=== PATIENT | female | born 1950 | race Caucasian/White ===

== ENCOUNTER 2016-10-13 16:12 | Observation (INO) ==
[2016-10-13] MEDS ORDERED: Aspirin 81 MG TAB.CHEW PO ONE (16:40)
--- NOTE | 2016-10-13 16:45 | Emergency Department Note ---
Disposition Clinical Impression: Unstable angina pectoris Disposition: Admitted As Inpatient Condition: Fair Chest Pain HPI - General Chief Complaint: ED Chest Pain Stated Complaint: chest pain/gabriele Time Seen by Provider: 10/13/16 16:26 Source: patient, family Mode of arrival: private vehicle Limitations: no limitations Vital Signs Reviewed: Yes Nursing Notes Reviewed: Yes - History of Present Illness HPI Narrative: Patient reports chest pain that over the past couple weeks has been increasing in severity and frequency and seems to be precipitated by less and less activity as time goes on. Today she had a severe episode that is precipitated when she was changing a tire rack in the bathroom. She had such chest discomfort and shortness of breath that she ended up on the floor and was having a hard time speaking because she felt so bad. Eventually it passed and she is actually pain-free here in the department. Pt complaint: chest pain Onset (ago): week(s) Duration: intermittent, gradually worsening Onset: during exertion Pain Location: substernal Severity: severe, now resolved Severity scale (1-10): 0 Quality: tightness Pain Radiation: none Improves with: rest Worsens with: exertion Associated symptoms: Reports: dyspnea Treatments prior to arrival chest pain: other (The patient was seen a couple weeks ago for chest discomfort and had a negative workup and arrangements were made for outpatient workup including a cardiology follow-up and an outpatient echo.) - Related Data Home Medications Medication Instructions Recorded Confirmed Aspirin Enteric Coated [Aspirin EC] 81 mg PO QAM 10/13/16 10/13/16 Cholecalciferol (Vitamin D3) 5,000 unit PO QAM 10/13/16 10/13/16 [Vitamin D3] Vit C/E/Zn/Coppr/Lutein/Zeaxan 1 cap PO BID 10/13/16 10/13/16 [Preservision Areds 2 Softgel] Previous Rx's Medication Instructions Recorded Docusate [Colace] 100 mg PO BID #60 capsule 10/18/16 Ferrous Sulfate 325 mg PO BIDWM #60 tablet 10/18/16 Allergies Allergy/AdvReac Type Severity Reaction Status Date / Time No Known Allergies Allergy Verified 10/13/16 16:20 All systems ED: reviewed and negative except as stated. Constitutional: Denies: fever, chills ENT ED: Denies: ear pain, throat pain, congestion Cardiovascular: Reports: chest pain, dyspnea on exertion. Denies: palpitations Respiratory: Reports: dyspnea. Denies: cough Gastrointestinal: Denies: abdominal pain, nausea, vomiting Musculoskeletal: Denies: back pain Integumentary: Denies: rash Neurological: Denies: headache Chest Pain PMH - Past Medical History Medical history: Reports: no medical history Surgical history: Reports: non-contributory Psychiatric history: Reports: no psych history FUR COAT SEWER history: Reports: no FUR COAT SEWER history, bilateral tubal ligation - Social History Smoking Status: Never smoker Alcohol use: Reports: occasionally Drug use: Reports: none Physical Exam - General Limitations: no limitations General appearance: alert, in no apparent distress - Head Head exam: atraumatic, normocephalic - Eye Eye exam: Present: normal appearance, PERRL, EOMI - ENT ENT exam: normal exam, mucous membranes moist, normal external ear exam - Neck Neck exam: Present: normal inspection, full ROM, trachea midline - Chest Chest inspection: Present: normal inspection, symmetric chest wall rise. Absent : tenderness - Respiratory Respiratory exam: Present: normal lung sounds bilaterally. Absent: respiratory distress, wheezes - Cardiovascular Cardiovascular exam: Present: regular rate, normal rhythm, normal heart sounds - Abdominal Exam Abdominal exam: Present: soft, Non-Tender - Extremities Exam Extremities exam: Present: normal inspection, full ROM. Absent: pedal edema - Neurological Exam Neurological exam: Present: alert, oriented X3 - Psychiatric Psychiatric exam: Present: normal affect, normal mood - Skin Skin exam: Present: warm, dry. Absent: rash Course Course Narrative: Patient presents with what sounds like angina. It also sounds unstable and that there is a significant crescendo pattern. She is completely asymptomatic at rest lying in the bed. I initiated a cardiac workup. Her EKG is unremarkable. We will get the labs going. She needs to be admitted to the hospital. I already spoke with the hospitalist who concurs. We are waiting for labs to come back and if there are no significant abnormalities patient will be admitted to the hospitalist service. We discussed the utilization of heparin at this time and will hold off since the patient is completely asymptomatic. - Consultations Consultation #1: Dr. Kaur, hospitalist - I discussed the case with the hospitalist. He is accepted the patient for admission pending lab results. When labs come back normal we will admit the patient to the floor on the hospitalist service. If there are abnormalities then we will contact the appropriate services. Time: 16:51 Vital Signs Temperature 98.1 F 10/13/16 16:20 Pulse Rate 78 10/13/16 16:20 Respiratory Rate 15 10/13/16 16:20 Blood Pressure 126/81 10/13/16 16:20 O2 Sat by Pulse Oximetry 99 10/13/16 16:20 Temperature 98.2 F 10/18/16 10:59 Pulse Rate 74 10/18/16 10:59 Respiratory Rate 15 10/18/16 10:59 Blood Pressure 120/74 10/18/16 10:59 O2 Sat by Pulse Oximetry 95 10/18/16 10:59 Oxygen Delivery Oxygen Delivery Room Air Chest Pain - Lab Data Lab results reviewed: Yes I reviewed the patient's lab results. Result diagrams: 10/18/16 06:45 10/18/16 06:45 Lab Results 10/13/16 10/13/16 10/13/16 Range/Units 17:10 17:10 17:10 WBC 7.5 (4.3-11.1) K/mcL RBC 3.95 (3.82-4.97) M/mcL Hgb 10.8 L (11.5-15.4) g/dL Hct 33.4 L (35.3-44.9) % MCV 84.6 (83.0-100.0) fL MCH 27.3 L (28.0-33.3) pg MCHC 32.3 (31.6-35.5) g/dL RDW 13.7 (11.5-14.5) % Plt Count 268 (140-400) K/mcL MPV 10.0 (9.4-12.4) fL Immature Gran % 0.3 (0-4) % Seg Neutrophils % 56.6 % Lymphocytes % 32.0 % Monocytes % 9.5 % Eosinophils % 1.1 % Basophils % 0.5 % Neutrophils # 4.3 (1.6-8.9) K/mcL Lymphocytes # 2.4 (0.6-4.6) K/mcL Monocytes # 0.7 (0.0-1.3) K/mcL Eosinophils # 0.1 (0.0-0.6) K/mcL Basophils # 0.0 (0.0-0.2) K/mcL PT 11.7 (9.4-12.1) Seconds INR 1.1 APTT 28.7 (26.0-36.0) Seconds Sodium 137 (136-145) mEq/L Potassium 3.7 (3.5-4.5) mEq/L Chloride 103 (98-109) mEq/L Carbon Dioxide 25 (19-29) mEq/L BUN 15 (7-20) mg/dL Creatinine 0.89 (0.57-1.11) mg/dL Est GFR ( Amer) > 60 (> 60) Est GFR (Non-Af Amer) > 60 (> 60) BUN/Creatinine Ratio 17 (6-26) Glucose 112 H (70-99) mg/dL Calculated Osmolality 286 (280-300) Calcium 9.1 (8.6-10.8) mg/dL Troponin I (0-0.03) ng/mL 10/13/16 Range/Units 17:10 WBC (4.3-11.1) K/mcL RBC (3.82-4.97) M/mcL Hgb (11.5-15.4) g/dL Hct (35.3-44.9) % MCV (83.0-100.0) fL MCH (28.0-33.3) pg MCHC (31.6-35.5) g/dL RDW (11.5-14.5) % Plt Count (140-400) K/mcL MPV (9.4-12.4) fL Immature Gran % (0-4) % Seg Neutrophils % % Lymphocytes % % Monocytes % % Eosinophils % % Basophils % % Neutrophils # (1.6-8.9) K/mcL Lymphocytes # (0.6-4.6) K/mcL Monocytes # (0.0-1.3) K/mcL Eosinophils # (0.0-0.6) K/mcL Basophils # (0.0-0.2) K/mcL PT (9.4-12.1) Seconds INR APTT (26.0-36.0) Seconds Sodium (136-145) mEq/L Potassium (3.5-4.5) mEq/L Chloride (98-109) mEq/L Carbon Dioxide (19-29) mEq/L BUN (7-20) mg/dL Creatinine (0.57-1.11) mg/dL Est GFR ( Amer) (> 60) Est GFR (Non-Af Amer) (> 60) BUN/Creatinine Ratio (6-26) Glucose (70-99) mg/dL Calculated Osmolality (280-300) Calcium (8.6-10.8) mg/dL Troponin I 0.00 (0-0.03) ng/mL - Radiology Data Radiology results reviewed: Yes I reviewed the patient's radiology results. - EKG Data EKG attestation: Yes I reviewed and interpreted this EKG. EKG shows normal: sinus rhythm, axis, intervals, QRS complexes, ST-T waves Rate: normal Interpretation: no acute changes, normal EKG
[2016-10-13 17:23] LABS: Basophils % 0.5 %; Eosinophils # 0.1 K/mcL (0.0-0.6); Eosinophils % 1.1 %; Hematocrit 33.4 % (35.3-44.9); Hemoglobin 10.8 g/dL (11.5-15.4); Immature Granulocytes % 0.3 % (0-4); Lymphocytes # 2.4 K/mcL (0.6-4.6); Mean Corpuscular HGB Conc 32.3 g/dL (31.6-35.5); Mean Corpuscular Hemoglobin 27.3 pg (28.0-33.3); Mean Corpuscular Volume 84.6 fL (83.0-100.0); Monocytes # 0.7 K/mcL (0.0-1.3); Monocytes % 9.5 %; Neutrophils # 4.3 K/mcL (1.6-8.9); Platelet Count 268 K/mcL (140-400); Red Blood Count 3.95 M/mcL (3.82-4.97); Red Cell Distribution Width 13.7 % (11.5-14.5); Segmented Neutrophils % 56.6 %
[2016-10-13 17:27] LABS: INR 1.1; Prothrombin Time 11.7 Seconds (9.4-12.1)
[2016-10-13 17:30] LABS: Activated Partial Thrombo Time 28.7 Seconds (26.0-36.0)
[2016-10-13 17:38] LABS: BUN/Creatinine Ratio 17 (6-26); Blood Urea Nitrogen 15 mg/dL (7-20); Calcium 9.1 mg/dL (8.6-10.8); Carbon Dioxide 25 mEq/L (19-29); Chloride 103 mEq/L (98-109); Glucose 112 mg/dL (70-99); Osmolality,Calculated 286 (280-300); Potassium 3.7 mEq/L (3.5-4.5); Sodium 137 mEq/L (136-145); eGFR For African Americans > 60 (> 60); eGFR For Non-African Americans > 60 (> 60)
[2016-10-13] MEDS ORDERED: Ondansetron 4 MG/2 ML VIAL IVP PRN (17:42)
[2016-10-13] MEDS ORDERED: MOM Conc 10 ML UD.LIQ PO PRN (17:42)
[2016-10-13] MEDS ORDERED: Naloxone 0.4 MG/ML INJ IVP PRN (17:42)
[2016-10-13] MEDS ORDERED: Mag Hydrox/Al Hydrox/Simeth 30 ML UDC PO PRN (17:42)
[2016-10-13] MEDS ORDERED: 0.9 % Sodium Chloride 1,000 ML IVC SCH (17:45)
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
[2016-10-13] MEDS: Acetaminophen 325 MG TABLET PO PRN (23:20)
[2016-10-14 00:37] LABS: Hematocrit 30.9 % (35.3-44.9); Hemoglobin 10.2 g/dL (11.5-15.4)
[2016-10-14 00:54] LABS: BUN/Creatinine Ratio 14 (6-26); Blood Urea Nitrogen 11 mg/dL (7-20); Carbon Dioxide 22 mEq/L (19-29); Chloride 104 mEq/L (98-109); Glucose 113 mg/dL (70-99); Osmolality,Calculated 278 (280-300); Potassium 3.6 mEq/L (3.5-4.5); Sodium 134 mEq/L (136-145); eGFR For African Americans > 60 (> 60); eGFR For Non-African Americans > 60 (> 60)
[2016-10-14] MEDS ORDERED: Regadenoson 0.4 MG/5 ML SYRINGE IVP ONE (06:27)
[2016-10-14 06:46] LABS: Bilirubin,Urine Negative (Negative); Blood,Urine Trace (Negative); Clarity,Urine Clear (Clear); Color,Urine Yellow (Yellow); Glucose,Urine (UA) Normal (Normal); Ketones,Urine Trace mg/dL (Negative); Leukocyte Esterase,Urine Trace (Negative); Nitrite,Urine Negative (Negative); Protein,Urine Negative (Neg-Trace); Specific Gravity,Urine 1.009 (1.010-1.025); Urobilinogen,Urine Normal (Normal)
[2016-10-14 06:48] LABS: Bacteria,Urine None Seen per hpf (None-Few); Hyaline Casts,Urine None Seen per lpf (None-Few); RBC,Urine 0-3 per hpf (0-3); Squamous Epithelial Cell,Urine Few per lpf (None-Few)
[2016-10-14] MEDS: Aspirin Enteric Coated 81 MG Tablet PO SCH (10:39)
--- NOTE | 2016-10-14 10:55 | ECHO - Doppler Report ---
Echocardiogram Name: Louisa Ramos Date of Study: 10/14/2016 Date: 1950 Ht: 65.0 in Medical Record#: [id number] Age: 66 Wt: 135.0 lb Gender: Female BSA: 1.67 Order #: [id number] Location: [facility] Room #: [id number] Reading Physician: Joe Del Rosario MD, [facility] An/Sqq 89(V)15 Sonar System Journeyman: Sven Cool RDCS Ordering Physician: Hannah Gray CNP Primary Physician: Indications: Shortness of breath, Chest pain Impressions: Normal left atrial size. No pulmonary hypertension. LVEF 60-65%. Normal left ventricular diastolic function. Mild aortic regurgitation. Left Ventricular Wall Motion: Rest Echo Findings All wall segments showed normal motion. Findings: Study Quality * Technically adequate exam. Right Ventricle * Normal right ventricular structure and function. Left Atrium * Normal left atrial size. Right Atrium * Normal right atrial size. Interatrial Septum * No evidence of PFO by color Doppler. Aorta * Normally sized aortic root. Pericardium * The pericardium appears normal. ECG Findings * Normal sinus rhythm. Mitral Valve * Normal mitral valve structure. * No mitral stenosis. * Trace mitral regurgitation. Tricuspid Valve * No tricuspid stenosis. * Trace tricuspid regurgitation. * Estimated RVSP is 25 mmHg. * Estimated RA pressure is 3-5 mmHg. * No pulmonary hypertension. Pulmonic Valve * No pulmonic stenosis. * Mild pulmonic regurgitation. * Pulmonic valve not well visualized. Left Ventricle * LVEF 60-65%. * Normal left ventricular diastolic function. * No segmental dysfunction. Aortic Valve * Normal aortic valve structure. * Trileaflet aortic valve. * Mild aortic regurgitation. IVC * Normal IVC dimensions and inspiratory collapse. History Measurements: BP: 101/ 62 2D Normal Values RVIDd: 2.70 cm <2.7 cm IVSd: .90 cm 0.6 - 1.0 cm LVIDd: 3.80 cm 3.7 - 5.6 cm LVPWd: .90 cm 0.6 - 1.1 cm LVIDs: 2.70 cm 1.5 - 3.6 cm AO: 2.90 cm < 4.0 cm LA: 2.90 cm 2.0 - 4.0cm %FS: 28.90 cm >25 % LA volume: 42 Mitral Valve Peak E:.77 m/sec Peak A:.55 m/sec E/A Ratio:1.4 Peak E' Lat Yossi:9.16 cm/s Peak E' Med Yossi:4 cm/s E/E' Lat Ratio:8.4 E/E' Med Ratio:19.1 Tricuspid Valve TV Regurg Peak Grad: 25.00mmHg TV Regurg Peak Yossi: 2.48m/sec Updated by Joe Del Rosario MD, FACC on 10/14/2016 10:48:38 AM electronically signed on 10/14/2016 10:48:50 AM with status of Final Wall Motion Hernandez: 1=Normal, 2=Hypokinesis, 3=Akinesis, 4=Dyskinesis, 5=Aneurysmal, 6=Hyperkinetic, X=Not Visualized (Blank)=Missing
--- NOTE | 2016-10-14 11:22 | Internal Med Progress Note ---
Date of Encounter: 10/14/16 Time of Encounter: 11:00 - Assessment and plan (1) Chest pain Current Visit: Yes Status: Acute Assessment and plan: Pt reports that chest pressure is some better today, however she is not up as she normally would be. Pressure is better with rest. Stress and echo done this a.m. Echo shows normal L atrial size, LVEF 60-65%, normal L ventricualr diastolic function, and mild aortic regurgitation. Stress negative for ischemia or infarct, pt denied chest pain during stress. Chest xray negative for any acute cardiopulmonary process. Lungs are clear. Troponins were negative. Pt elicits less of a response when epigastric area palpated this a.m. Will also continue Prilosec 20mg and add hepatic panel. Suspect gastritis. Continue telemetry Continue cardiac diet-no caffeine Qualifiers: Chest pain type: unspecified Qualified Code(s): R07.9 - Chest pain, unspecified (2) Shortness of breath Current Visit: Yes Status: Acute Assessment and plan: Stable. No change. Pt reports even slight increase in SOB with treadmill stress test. (3) Low hemoglobin Current Visit: Yes Status: Acute Assessment and plan: Hgb 10.8 yesterday, 10.2 today, could be from hemodilution with IVF overnight. Bedside guaiac nedgative and repeat Hgb remains 10.8. Will continue to monitor. (4) UTI (urinary tract infection) Current Visit: Yes Status: Acute Assessment and plan: Fever 103.0 overnight. Chest xray negative, flu swab negative. Fever resolved with Acetaminophen. Urine collected last night with trace of ketones, blood, and leukocyte esterase, few epithelial cells and 5-15 WBC. Culture is pending. Will start Rocephin 1 gram IV. Qualifiers: Urinary tract infection type: acute cystitis Hematuria presence: with hematuria Qualified Code(s): N30.01 - Acute cystitis with hematuria (5) Fever Current Visit: Yes Status: Resolved Assessment and plan: Resolved with Acetaminophen. Repeat WBC 6.8, no leukocytosis. Qualifiers: Fever type: due to other condition Qualified Code(s): R50.81 - Fever presenting with conditions classified elsewhere (6) Fatigue Current Visit: Yes Status: Acute Assessment and plan: Pt resting, states that she feels some better. Will continue to monitor. Qualifiers: Fatigue type: unspecified Qualified Code(s): R53.83 - Other fatigue - Time Spent With Patient less than 15 minutes - Subjective Interval history: Pt states that the chest pressure is some better and she has not had any intense pain since 0500. She does admit that the pressure is better with rest, but she still feels SOB. She tolerated the stress test well and requested to not have the treadmill on an incline and completed the entire 4 min with only slight increase in pressure and SOB. Pt denies urinary symptoms, dysuria, flank pain, urgency, frequency. - Constitutional Vitals: Temp Pulse Resp BP Pulse Ox 97.7 F 54 15 101/62 93 L 10/14/16 07:16 10/14/16 07:16 10/14/16 07:16 10/14/16 07:16 10/14/16 10:30 General appearance: Present: cooperative, A&O X 3, pleasant, answers questions appropriately - ENT ENT exam: Present: mucous membranes moist, normal exam - Neck Neck exam general surgery: Present: normal inspection. Absent: lymphadenopathy , tenderness - Respiratory Respiratory exam: Present: CTAB. Absent: accessory muscle use, chest wall tenderness, decreased breath sounds, rales, respiratory distress, rhonchi, stridor, wheezes, tachypnea - Cardiovascular Cardiovascular exam: Present: RRR, +S1, +S2. Absent: diastolic murmur, systolic murmur - GI/Abdominal GI/Abdominal exam: Present: hepatomegaly, normal bowel sounds, tenderness Additional comments: epigastric tenderness has improved since last pm, less of a reaction today than last night in ED. - Extremities Exam Extremities exam: Present: normal capillary refill, normal inspection, warm. Absent: calf tenderness, cyanotic, joint swelling, pedal edema, tenderness - Neurological Exam Neurological exam: Present: alert, oriented X3. Absent: no focal deficits Internal Medicine: Result - Labs CBC & Chem 7: 10/14/16 12:30 10/14/16 00:06 Labs: Short CBC 10/14/16 Range/Units 00:06 Hgb 10.2 L (11.5-15.4) g/dL Hct 30.9 L (35.3-44.9) % BMP 10/14/16 00:06 Sodium 134 L Potassium 3.6 Chloride 104 Carbon Dioxide 22 BUN 11 Creatinine 0.80 Glucose 113 H Calcium 8.0 L Cardiac Enzymes 10/14/16 10/14/16 Range/Units 00:06 06:28 Troponin I 0.01 0.01 (0-0.03) ng/mL Urine 10/14/16 Range/Units 06:00 Urine Color Yellow (Yellow) Urine Clarity Clear (Clear) Urine pH 6.0 (5.0-8.0) pH Units Ur Specific [place] 1.009 L (1.010-1.025) Urine Protein Negative (Neg-Trace) mg/dL Urine Glucose (UA) Normal (Normal) mg/dL - ABG Interpretation ABG results: PT/INR, D-dimer PT 11.7 Seconds (9.4-12.1) 10/13/16 17:10 Consult Discharge Plan - Plan Referrals: Steven Bravo DO [Primary Care Provider] -
--- NOTE | 2016-10-14 11:42 | Nuclear Medicine Stress Report ---
Low Level Regadenoson Name: Louisa Ramos Date of Study: 10/14/2016 Date: 1950 Ht: 64.0 in Medical Record#: [id number] Age: 66 Wt: 136.0 lb Gender: Female Order #: [id number] Location: [facility] Room: [facility] Supervising Provider: Orlando Schwarz CNP Reading Physician: Joe Del Rosario MD, [facility] Ordering Physician: Lety Antonio CNP Primary Care Physician: Steven Bravo DO Stress Technologist: Beau Braga, MILIEU COORDINATOR, [facility] Backfiller: Rufino Edwards Indications: Chest Pain, Chest Pain Impression: Perfusion imaging was negative for ischemia or infarct. Pharmacologic ECG was non diagnostic for ischemia. Patient had no chest pain with stress. Normal hemodynamic response. Gated EF = >70%. The LV is not dilated. There is no evidence of TID. Stress Test Summary: Stress Test Type: Low level pharmacologic Regadenoson 0.4mg/5ml given IV Baseline Information: Initial Heart Rate: 77 Blood Pressure: 102/72 Stress Information: Stress Time: 4 min 00 sec Test Terminated Due to (primary): As per protocol Maximum Blood Pressure: 104/70 Maximum Heart Rate: 105 Percent Maximum Heart Rate Achieved: 69 Double Product: [id number] METS Reached: 2.1 Symptoms: Shortness of breath, Shortness of breath Nuclear Summary: SPECT myocardial perfusion imaging using Tc99m Sestamibi given intravenously was performed at rest and following cardiac stress testing. The resting images were obtained following initial dose of 10.7 mCi. Following stress an additional dose of 34.3 mCi was given at peak exercise or 30 seconds post regadenoson infusion. Medication Given: Time Medication Dose Units Route Findings: Stress Note * Resting ECG demonstrated normal sinus rhythm. * No baseline arrhythmias were noted. * Pharmacologic stress ECG is non diagnostic for ischemia due to failure to reach target heartrate. * Patient had no chest pain during stress. * Rare PVCs noted prior to exam beginning. * Rare PVCs noted during stress. Study Quality * Study quality is good. Gated EF > 70% * Gated EF > 70%. Left Ventricle * The left ventricle is not dilated. NORMALS * Normal wall motion. * Normal segmental perfusion in stress. * Normal Segmental Perfusion in rest. TID * No evidence of transient ischemic dilatation. Updated by Joe Del Rosario MD, FACC on 10/14/2016 11:36:49 AM electronically signed on 10/14/2016 11:37:41 AM with status of Final
[2016-10-14 12:48] LABS: Basophils # 0.1 K/mcL (0.0-0.2); Basophils % 0.7 %; Eosinophils % 0.4 %; Hematocrit 35.4 % (35.3-44.9); Hemoglobin 10.8 g/dL (11.5-15.4); Immature Granulocytes % 0.4 % (0-4); Immature Platelets 3.2 % (1.1-6.1); Lymphocytes % 29.5 %; Mean Corpuscular HGB Conc 30.5 g/dL (31.6-35.5); Mean Corpuscular Hemoglobin 26.8 pg (28.0-33.3); Mean Corpuscular Volume 87.8 fL (83.0-100.0); Mean Platelet Volume 10.1 fL (9.4-12.4); Monocytes # 0.6 K/mcL (0.0-1.3); Monocytes % 9.1 %; Neutrophils # 4.1 K/mcL (1.6-8.9); Platelet Count 223 K/mcL (140-400); Red Blood Count 4.03 M/mcL (3.82-4.97); Red Cell Distribution Width 13.8 % (11.5-14.5); Segmented Neutrophils % 59.9 %
[2016-10-14 12:49] LABS: Albumin 2.9 g/dL (3.5-5.0); Albumin/Globulin Ratio 0.8 (1.1-2.2); Bilirubin,Direct 0.3 mg/dL (0.0-0.5); Bilirubin,Indirect 0.4 mg/dL (0.0-1.2); Bilirubin,Total 0.7 mg/dL (0.2-1.2); Globulin 3.7 g/dL (2.4-3.5); Total Protein 6.6 g/dL (6.0-8.3)
[2016-10-14 13:27] LABS: Platelet Estimate Normal (Normal); Reactive Lymphocytes Present (Not Present)
[2016-10-14] MEDS: Acetaminophen 325 MG TABLET PO PRN (16:34)
[2016-10-15 04:08] LABS: Basophils # 0.1 K/mcL (0.0-0.2); Basophils % 0.5 %; Hemoglobin 10.9 g/dL (11.5-15.4); Immature Granulocytes % 0.3 % (0-4); Lymphocytes # 2.1 K/mcL (0.6-4.6); Lymphocytes % 21.7 %; Mean Corpuscular HGB Conc 32.1 g/dL (31.6-35.5); Mean Corpuscular Hemoglobin 27.1 pg (28.0-33.3); Mean Corpuscular Volume 84.6 fL (83.0-100.0); Mean Platelet Volume 10.7 fL (9.4-12.4); Monocytes # 0.7 K/mcL (0.0-1.3); Monocytes % 6.8 %; Neutrophils # 6.8 K/mcL (1.6-8.9); Platelet Count 241 K/mcL (140-400); Red Blood Count 4.02 M/mcL (3.82-4.97); Red Cell Distribution Width 13.8 % (11.5-14.5); Segmented Neutrophils % 70.7 %
[2016-10-15 04:23] LABS: BUN/Creatinine Ratio 12 (6-26); Blood Urea Nitrogen 11 mg/dL (7-20); Calcium 8.3 mg/dL (8.6-10.8); Carbon Dioxide 21 mEq/L (19-29); Chloride 103 mEq/L (98-109); Glucose 118 mg/dL (70-99); Osmolality,Calculated 280 (280-300); Potassium 3.6 mEq/L (3.5-4.5); Sodium 135 mEq/L (136-145); eGFR For African Americans > 60 (> 60); eGFR For Non-African Americans > 60 (> 60)
[2016-10-15] MEDS: Acetaminophen 325 MG TABLET PO PRN ×2 (04:25→18:13)
[2016-10-15] MEDS: *HR* Morphine 2 MG/ML SYRINGE IVP PRN ×2 (04:35→14:25)
[2016-10-15 04:55] LABS: Reactive Lymphocytes Present (Not Present)
[2016-10-15 04:56] LABS: Platelet Estimate Normal (Normal)
[2016-10-15] MEDS: Aspirin Enteric Coated 81 MG Tablet PO SCH (08:25)
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
[2016-10-16] MEDS: *HR* Morphine 2 MG/ML SYRINGE IVP PRN ×2 (01:15→16:10)
[2016-10-16 04:43] LABS: Basophils % 0.3 %; Eosinophils % 0.1 %; Hematocrit 32.1 % (35.3-44.9); Hemoglobin 10.2 g/dL (11.5-15.4); Immature Granulocytes % 0.3 % (0-4); Immature Reticulocyte % 21.6 % (11.0-38.0); Lymphocytes % 14.8 %; Mean Corpuscular HGB Conc 31.8 g/dL (31.6-35.5); Mean Corpuscular Hemoglobin 26.6 pg (28.0-33.3); Mean Corpuscular Volume 83.6 fL (83.0-100.0); Mean Platelet Volume 10.3 fL (9.4-12.4); Monocytes # 0.8 K/mcL (0.0-1.3); Monocytes % 7.6 %; Platelet Count 228 K/mcL (140-400); Red Blood Count 3.84 M/mcL (3.82-4.97); Red Cell Distribution Width 13.9 % (11.5-14.5); Retculocyte # 0.06 M/mcL (0.05-0.10); Reticulocyte % 1.5 % (1.6-2.8); Segmented Neutrophils % 76.9 %
[2016-10-16 04:45] LABS: Lymphocytes # 1.5 K/mcL (0.6-4.6)
[2016-10-16 05:09] LABS: BUN/Creatinine Ratio 16 (6-26); Blood Urea Nitrogen 13 mg/dL (7-20); Calcium 8.1 mg/dL (8.6-10.8); Carbon Dioxide 22 mEq/L (19-29); Chloride 101 mEq/L (98-109); Glucose 130 mg/dL (70-99); Osmolality,Calculated 278 (280-300); Potassium 3.6 mEq/L (3.5-4.5); Sodium 133 mEq/L (136-145); eGFR For African Americans > 60 (> 60); eGFR For Non-African Americans > 60 (> 60)
[2016-10-16 05:16] LABS: Reactive Lymphocytes Present (Not Present)
[2016-10-16 05:17] LABS: Platelet Estimate Normal (Normal)
[2016-10-16 05:34] LABS: Folate 9.7 ng/mL (7.0-31.4)
[2016-10-16 06:18] LABS: % Iron Saturation 4 % (15-50); Iron 14 mcg/dL (50-170); Transferrin 227 mg/dL (180-382)
[2016-10-16 06:37] LABS: Ferritin 57 ng/ml (5-204)
--- NOTE | 2016-10-16 07:03 | Electrocardiograph Report ---
[address] [place] [address] Test Date: 2016-10-13 Pat Name: Louisa Ramos Department: 104 Room: 3B22 Gender: F Word Processing Operator: : 1950 Requested By: Steve Goodwin Order Number: [id number] Reading MD: Joe Del Rosario MD Measurements Intervals [place] Rate: 78 P: 6 CT: 155 QRS: 14 QRSD: 82 T: 41 QT: 371 QTc: 404 Interpretive Statements SINUS RHYTHM Electronically Signed On 10-16-2016 7:01:59 EST by Joe Del Rosario MD
[2016-10-16] MEDS: Aspirin Enteric Coated 81 MG Tablet PO SCH (09:39)
--- NOTE | 2016-10-16 14:35 | Discharge Summary ---
Date of Encounter: 10/16/16 Time of Encounter: 09:00 - Discharge Diagnosis (1) Chest pain Priority: Primary Status: Acute Qualifiers: Chest pain type: unspecified Qualified Code(s): R07.9 - Chest pain, unspecified (2) Exertional dyspnea Priority: Secondary Status: Acute (3) Anemia Priority: Secondary Status: Acute Qualifiers: Anemia type: iron deficiency (4) Fever Priority: Secondary Status: Acute (5) DVT prophylaxis Priority: Secondary Status: Acute - Discharge Medications Prescriptions: Docusate [Colace] 100 mg PO BID #60 capsule Ferrous Sulfate 325 mg PO BIDWM #60 tablet PredniSONE [Prednisone] 10 mg PO DAILY #15 tab.ds.pk Home Medications: Aspirin Enteric Coated [Aspirin EC] 81 mg PO QAM 10/13/16 [History] Cholecalciferol (Vitamin D3) [Vitamin D3] 5,000 unit PO QAM 10/13/16 [History] Vit C/E/Zn/Coppr/Lutein/Zeaxan [Preservision Areds 2 Softgel] 1 cap PO BID 10/13 [History] Docusate [Colace] 100 mg PO BID #60 capsule 10/16/16 [Rx] Ferrous Sulfate 325 mg PO BIDWM #60 tablet 10/16/16 [Rx] PredniSONE [Prednisone] 10 mg PO DAILY #15 tab.ds.pk 10/16/16 [Rx] Allergies/Adverse Reactions: Allergies No Known Allergies Allergy (Verified 10/13/16 16:20) Procedures/tests Complete & Pending: Procedures Performed prior 72 hours Category Date Time Status CT chest w/o contrast [CT chest wo con] [CT] Routine Cat Scan 10/15/16 11:25 Completed NM ellie perf SPECT multi [NM] Routine Exams 10/13/16 18:43 Taken EV echocardiogram Routine Y 10/14/16 08:09 Completed SP pharm nuclear stress Routine Y 10/14/16 07:00 Completed Date of admission: 10/13/16 18:04 Primary care physician: Lydia Levi Discharging clinician: Torin Mendoza Anticipated date of discharge: 10/16/16 - Patient Status Disposition: Home, Self-Care Condition: Fair Functional capacity at discharge: independent ambulation Overall status at discharge: patient is progressing back to baseline - Discharge Instructions Follow Up With: Shelly,Steven D, DO [Primary Care Provider] - - Diet and Activity Activity: increase activity as tolerated Diet: advance to your usual diet Hospital course: Ms. Ramos is a 66 year old female who presented to hospital on 10/13/16 with substernal chest pressure. She stated that she was hanging towel racks in her home and had an acute onset of chest pressure. She dropped to her knees because she was unable to catch her breath. She stated that she has had prior episodes of the same in the past month. She admitted to one-month history of extreme fatigue and increased dyspnea. She stated that she goes to work for approximately four hours and returns home very fatigued, which is new for her. While she only sleeps 4-5 hours each night, she lies in bed for 12-13 hours because she is too fatigued to move. EKG and telemetry revealed no arrhythmias. CXR demonstrated no consoliation, pleural effusion, or pneumothorax. CT chest revealed minimal linear atelectasis or fibrosis in the lung bases. Lungs were clear of airspace disease or focal mass. No pleural effusion was noted. Cacified granuloma in left lung apex was seen. Stress test was negative for ischemia. ECHO was normal. Patient did have Tmax of 103 during hospital stay with elevations of inflammatory markers. ESR 92, CRP 92, and WBC increased from 7.5 upon admission to 10.5. EBV was negative, RF was negative. WENDY, CCP, and parvovirus B19 are pending. Respiratory infection panel is pending. During the hospital stay, patient was determined to have iron -deficiency anemia. She was treated with FeSO4 325mg po BID along with colace. Patient's etiology of chest pain remains unclear at this time. It is not reproducible during stress test. - Time Spent with Patient Total time spent providing and/or coordinating discharge services: Greater than 30 minutes (35 minutes including time with) - Constitutional Vitals: Temp Pulse Resp BP Pulse Ox 98.6 F 68 15 106/64 98 10/16/16 11:29 10/16/16 11:29 10/16/16 11:29 10/16/16 11:29 10/16/16 11:29 General appearance: Present: cooperative, A&O X 3, pleasant, answers questions appropriately - Head Head exam: Present: atraumatic, normocephalic - Eye Eye exam: Present: PERRL, conjuntiva pink, sclera anicteric Pupils: Present: PERRL - Neck Neck exam general surgery: Present: supple, trachea midline. Absent: lymphadenopathy - Respiratory Respiratory exam: Present: CTAB. Absent: accessory muscle use, rales, rhonchi, wheezes - Cardiovascular Cardiovascular exam: Present: RRR, +S2, systolic murmur (2/6 systolic murmur). Absent: diastolic murmur, gallop, rubs - GI/Abdominal GI/Abdominal exam: Present: normal bowel sounds, soft, no peritoneal signs. Absent: distended, tenderness - Extremities Exam Extremities exam: Present: warm, radial pulses palpable and symetrical. Absent : calf tenderness, cyanotic, pedal edema - Neurological Exam Neurological exam: Present: CN II-XII intact, oriented X3. Absent: pronater drift, facial droop, speech deficit Additional comments: Strength upper and lower extremities 5/5, reflexes 2/4 Strength left lower extremity 5/5, reflexes 2/4 Strength right lower extremity 3/5, reflexes 2/4 - Skin Skin exam: Present: dry, intact - Attending Attestation I examined this patient and my medical decision-making was reviewed with the CUSTOMER PROGRAM MANAGER/PA/Advanced Practice Nurse/Resident Physician. I agree with the documented findings, disposition and treatment plan as described except to the extent set forth below.
[2016-10-16 15:34] LABS: Adenovirus Not Detected (Not Detect); Bordetella Pertussis Not Detected (Not Detect); Chlamydophila pneumoniae Not Detected (Not Detect); Coronavirus 229E Not Detected (Not Detect); Coronavirus HKU1 Not Detected (Not Detect); Coronavirus NL63 Not Detected (Not Detect); Coronavirus OC43 Not Detected (Not Detect); Human Metapneumovirus Not Detected (Not Detect); Human Rhinovirus/Enterovirus Not Detected (Not Detect); Influenza A Subtype 2009 H1 Not Detected (Not Detect); Influenza A Untypeable Not Detected (Not Detect); Influenza B Not Detected (Not Detect); Mycoplasma pneumoniae Not Detected (Not Detect); Parainfluenza Virus 1 Not Detected (Not Detect); Parainfluenza Virus 2 Not Detected (Not Detect); Parainfluenza Virus 3 Not Detected (Not Detect); Parainfluenza Virus 4 Not Detected (Not Detect); Respiratory Syncytial Virus Not Detected (Not Detect)
[2016-10-16] MEDS: Acetaminophen 325 MG TABLET PO PRN (17:04)
--- NOTE | 2016-10-16 18:48 | Internal Med Progress Note ---
<Joann Charles - Last Filed: 10/16/16 18:45> Date of Encounter: 10/16/16 Time of Encounter: 09:00 - Assessment and plan (1) Chest pain Current Visit: Yes Status: Acute Assessment and plan: Patient with mid sternal chest pain upon presentation However, has not had any further episodes of chest pain Normal EKG, Echo, and troponins. Stress test normal CXR negative CT poitive for atelectasis or fibrosis of lung bases, calcified granuloma in left lung apex Etiology is unclear Qualifiers: Chest pain type: unspecified Qualified Code(s): R07.9 - Chest pain, unspecified (2) Exertional dyspnea Current Visit: Yes Status: Acute Assessment and plan: as stated above. (3) Fever Current Visit: Yes Status: Acute Assessment and plan: Patient continues to have febrile episodes associated with muscle tightening, coughing, shaking Concern for mounting infection, etiology unknown versus rheumatologic cause Stat blood cultures repeated Blood smear pending RF negative WENDY and CCP are pending LINDA and Vit D are pending Tick-bourne illness titers, pending Continue treatment of fever with anti-pyretic Qualifiers: Fever type: unspecified Qualified Code(s): R50.9 - Fever, unspecified (4) Anemia Current Visit: Yes Status: Acute Assessment and plan: Iron deficiency, normocytic anemia Stable Etiology unclear at this time. no history of bleeding Qualifiers: Anemia type: iron deficiency Qualified Code(s): D50.8 - Other iron deficiency anemias (5) DVT prophylaxis Current Visit: Yes Status: Acute Assessment and plan: EPCDS - Time Spent With Patient Greater than 35 minutes (45 minutes including time with patient and coordinating care) - Subjective Interval history: Patient states she is feeling well this morning. No chest pain, dyspnea, muscle pain. - Constitutional Vitals: Temp Pulse Resp BP Pulse Ox 100.2 F H 78 16 117/70 93 L 10/16/16 17:36 10/16/16 17:36 10/16/16 17:36 10/16/16 17:36 10/16/16 17:36 General appearance: Present: cooperative, A&O X 3, pleasant, answers questions appropriately - Head Head exam: Present: atraumatic, normocephalic - Eye Eye exam: Present: PERRL, conjuntiva pink, sclera anicteric Pupils: Present: PERRL - Neck Neck exam general surgery: Present: supple, trachea midline - Respiratory Respiratory exam: Present: CTAB. Absent: accessory muscle use, rales, rhonchi, wheezes - Cardiovascular Cardiovascular exam: Present: RRR, +S2, systolic murmur (2/6 systolic murmur). Absent: diastolic murmur, gallop, rubs - GI/Abdominal GI/Abdominal exam: Present: normal bowel sounds, soft, no peritoneal signs. Absent: distended, tenderness - Extremities Exam Extremities exam: Present: warm, radial pulses palpable and symetrical. Absent : calf tenderness, cyanotic, pedal edema - Neurological Exam Neurological exam: Present: CN II-XII intact, oriented X3. Absent: pronater drift, facial droop, speech deficit Additional comments: Strength upper and lower extremities 5/5, reflexes 2/4 Strength left lower extremity 5/5, reflexes 2/4 Strength right lower extremity 3/5, reflexes 2/4 - Skin Skin exam: Present: dry, intact Internal Medicine: Result - Labs CBC & Chem 7: 10/16/16 03:56 10/16/16 03:56 Labs: Short CBC 10/16/16 Range/Units 03:56 WBC 10.4 (4.3-11.1) K/mcL Hgb 10.2 L (11.5-15.4) g/dL Hct 32.1 L (35.3-44.9) % Plt Count 228 (140-400) K/mcL Neutrophils # 8.0 (1.6-8.9) K/mcL BMP 10/16/16 03:56 Sodium 133 L Potassium 3.6 Chloride 101 Carbon Dioxide 22 BUN 13 Creatinine 0.82 Glucose 130 H Calcium 8.1 L - ABG Interpretation ABG results: PT/INR, D-dimer PT 11.7 Seconds (9.4-12.1) 10/13/16 17:10 Consult Discharge Plan - Plan Referrals: Steven Bravo DO [Primary Care Provider] - 10/20/16 9:45 am Prescriptions: Docusate [Colace] 100 mg PO BID #60 capsule Ferrous Sulfate 325 mg PO BIDWM #60 tablet PredniSONE [Prednisone] 10 mg PO DAILY #15 tab.ds.pk - Attending Attestation I examined this patient and my medical decision-making was reviewed with the CHARGEBACK SPECIALIST/PA/Advanced Practice Nurse/Resident Physician. I agree with the documented findings, disposition and treatment plan as described except to the extent set forth below. <Torin Mendoza - Last Filed: 10/16/16 18:54> Date of Encounter: 10/16/16 - Constitutional Vitals: Temp Pulse Resp BP Pulse Ox 100.2 F H 78 16 117/70 93 L 10/16/16 17:36 10/16/16 17:36 10/16/16 17:36 10/16/16 17:36 10/16/16 17:36 Internal Medicine: Result - Labs CBC & Chem 7: 10/16/16 03:56 10/16/16 03:56 Labs: Short CBC 10/16/16 Range/Units 03:56 WBC 10.4 (4.3-11.1) K/mcL Hgb 10.2 L (11.5-15.4) g/dL Hct 32.1 L (35.3-44.9) % Plt Count 228 (140-400) K/mcL Neutrophils # 8.0 (1.6-8.9) K/mcL BMP 10/16/16 03:56 Sodium 133 L Potassium 3.6 Chloride 101 Carbon Dioxide 22 BUN 13 Creatinine 0.82 Glucose 130 H Calcium 8.1 L - ABG Interpretation ABG results: PT/INR, D-dimer PT 11.7 Seconds (9.4-12.1) 10/13/16 17:10 - Attending Attestation I examined this patient and my medical decision-making was reviewed with the CHARGEBACK SPECIALIST/PA/Advanced Practice Nurse/Resident Physician. I agree with the documented findings, disposition and treatment plan as described except to the extent set forth below. Admitted due to chest pain and SOB. Cardiac workup negative. Febrile while inhouse. No PNA, no UTI, negative viral testing. Negative RF, chest CT negative. Was even thinking on discharging her with close follow up and an empirical low dose steroid course (PMR? GCA?), however febrile this evening and decided to hold discharge.
[2016-10-16] MEDS: predniSONE 20 MG TABLET PO SCH (22:05)
[2016-10-17] MEDS: predniSONE 20 MG TABLET PO SCH (07:49)
[2016-10-17] MEDS: Aspirin Enteric Coated 81 MG Tablet PO SCH (07:49)
[2016-10-17 08:53] LABS: Basophils % 0.1 %; Hemoglobin 10.7 g/dL (11.5-15.4); Immature Granulocytes % 0.4 % (0-4); Lymphocytes # 1.6 K/mcL (0.6-4.6); Lymphocytes % 22.2 %; Mean Corpuscular HGB Conc 31.5 g/dL (31.6-35.5); Mean Corpuscular Hemoglobin 26.3 pg (28.0-33.3); Mean Corpuscular Volume 83.5 fL (83.0-100.0); Mean Platelet Volume 10.6 fL (9.4-12.4); Monocytes # 0.3 K/mcL (0.0-1.3); Neutrophils # 5.2 K/mcL (1.6-8.9); Platelet Count 260 K/mcL (140-400); Red Blood Count 4.07 M/mcL (3.82-4.97); Red Cell Distribution Width 13.9 % (11.5-14.5); Segmented Neutrophils % 73.3 %
[2016-10-17 09:15] LABS: Alanine Aminotransferase 17 Units/L (0-55); Albumin 2.8 g/dL (3.5-5.0); Albumin/Globulin Ratio 0.7 (1.1-2.2); Alkaline Phosphatase 87 Units/L (38-126); Aspartate Amino Transferase 18 Units/L (5-34); BUN/Creatinine Ratio 15 (6-26); Bilirubin,Total 0.6 mg/dL (0.2-1.2); Blood Urea Nitrogen 11 mg/dL (7-20); Calcium 8.6 mg/dL (8.6-10.8); Carbon Dioxide 24 mEq/L (19-29); Chloride 101 mEq/L (98-109); Globulin 4.3 g/dL (2.4-3.5); Glucose 135 mg/dL (70-99); Osmolality,Calculated 285 (280-300); Potassium 3.9 mEq/L (3.5-4.5); Sodium 137 mEq/L (136-145); Total Protein 7.1 g/dL (6.0-8.3); eGFR For African Americans > 60 (> 60); eGFR For Non-African Americans > 60 (> 60)
[2016-10-17 10:04] LABS: Hemoglobin A1C 5.5 %
--- NOTE | 2016-10-17 10:07 | Internal Med Progress Note ---
<Gildardo Polanco - Last Filed: 10/17/16 17:54> Date of Encounter: 10/17/16 Time of Encounter: 10:07 - Assessment and plan (1) Chest pain Current Visit: Yes Status: Acute Assessment and plan: 10/17/16 Patient was febrile last night again. work up still unrevealing. results for parvovirus and tick born illneses were ordered and are pending. Further questioning today revealse patient has 5 snakes, 12 cats, and 2 dogs. Possibly Zoonoses? However with reactive lymphocytes and normal blood cultures would think this is more of a viral illnes. She has no more reactive lymphocytes on todays CBC so she may have defervesced. we will get CT of the abdomen and pelvis to r/O intraabdominal pathology. Possible DC in the AM if no fevers overnight. 10/15/16 Patient with mid sternal chest pain upon presentation However, has not had any further episodes of chest pain Normal EKG, Echo, and troponins. Stress test normal CXR negative CT poitive for atelectasis or fibrosis of lung bases, calcified granuloma in left lung apex Etiology is unclear Qualifiers: Chest pain type: unspecified Qualified Code(s): R07.9 - Chest pain, unspecified (2) Exertional dyspnea Current Visit: Yes Status: Acute Assessment and plan: as stated above. (3) Anemia Current Visit: Yes Status: Acute Assessment and plan: Iron deficiency, normocytic anemia Stable Etiology unclear at this time. no history of bleeding Qualifiers: Anemia type: iron deficiency Qualified Code(s): D50.8 - Other iron deficiency anemias (4) Fever Current Visit: Yes Status: Acute Assessment and plan: Patient continues to have febrile episodes associated with muscle tightening, coughing, shaking Concern for mounting infection, etiology unknown versus rheumatologic cause blood cultures show NGTD Blood smear pending RF negative WENDY and CCP are pending LINDA and Vit D are pending Tick-bourne illness titers, pending Continue treatment of fever with anti-pyretic Qualifiers: Fever type: unspecified Qualified Code(s): R50.9 - Fever, unspecified (5) DVT prophylaxis Current Visit: Yes Status: Acute Assessment and plan: EPCDS - Subjective Interval history: No major events overnight. Patient did have fever yesterday afternoon. She denies any chest pain or dyspnea. She has Chills and rigors with the fever. She has no further complaints or concerns at this time. - Constitutional Vitals: Temp Pulse Resp BP Pulse Ox 97.5 F L 63 15 120/58 98 10/17/16 07:59 10/17/16 07:59 10/17/16 07:59 10/17/16 07:59 10/17/16 07:59 General appearance: Present: cooperative, A&O X 3, pleasant, answers questions appropriately - Head Head exam: Present: atraumatic, normocephalic - Eye Eye exam: Present: PERRL, conjuntiva pink, sclera anicteric Pupils: Present: PERRL - Neck Neck exam general surgery: Present: supple, trachea midline. Absent: lymphadenopathy - Respiratory Respiratory exam: Present: CTAB. Absent: accessory muscle use, rales, rhonchi, wheezes - Cardiovascular Cardiovascular exam: Present: RRR, +S1, +S2. Absent: diastolic murmur, gallop, rubs, systolic murmur - GI/Abdominal GI/Abdominal exam: Present: normal bowel sounds, soft, no peritoneal signs. Absent: distended, tenderness - Extremities Exam Extremities exam: Present: warm, radial pulses palpable and symetrical. Absent : calf tenderness, cyanotic, pedal edema - Skin Skin exam: Present: dry, intact Internal Medicine: Result - Labs CBC & Chem 7: 10/17/16 08:13 10/17/16 08:13 Labs: Short CBC 10/16/16 10/17/16 Range/Units 03:56 08:13 WBC 10.4 7.1 (4.3-11.1) K/mcL Hgb 10.2 L 10.7 L (11.5-15.4) g/dL Hct 32.1 L 34.0 L (35.3-44.9) % Plt Count 228 260 (140-400) K/mcL Neutrophils # 8.0 5.2 (1.6-8.9) K/mcL BMP 10/17/16 08:13 Sodium 137 Potassium 3.9 Chloride 101 Carbon Dioxide 24 BUN 11 Creatinine 0.74 Glucose 135 H Calcium 8.6 Liver Function 10/17/16 Range/Units 08:13 Total Bilirubin 0.6 (0.2-1.2) mg/dL AST 18 (5-34) Units/L ALT 17 (0-55) Units/L Alkaline Phosphatase 87 (38-126) Units/L Albumin 2.8 L (3.5-5.0) g/dL - ABG Interpretation ABG results: PT/INR, D-dimer PT 11.7 Seconds (9.4-12.1) 10/13/16 17:10 - VTE Documentation of Mechanical Device: Intermittent pneumatic compression device Consult Discharge Plan - Plan Referrals: Steven Bravo DO [Primary Care Provider] - 10/20/16 9:45 am Prescriptions: Docusate [Colace] 100 mg PO BID #60 capsule Ferrous Sulfate 325 mg PO BIDWM #60 tablet PredniSONE [Prednisone] 10 mg PO DAILY #15 tab.ds.pk <Cameron Andres P - Last Filed: 10/17/16 18:48> Date of Encounter: 10/17/16 - Constitutional Vitals: Temp Pulse Resp BP Pulse Ox 98.1 F 73 15 120/71 94 L 10/17/16 15:18 10/17/16 15:18 10/17/16 15:18 10/17/16 15:18 10/17/16 15:18 Internal Medicine: Result - Labs CBC & Chem 7: 10/17/16 08:13 10/17/16 08:13 Labs: Short CBC 10/16/16 10/17/16 Range/Units 03:56 08:13 WBC 10.4 7.1 (4.3-11.1) K/mcL Hgb 10.2 L 10.7 L (11.5-15.4) g/dL Hct 32.1 L 34.0 L (35.3-44.9) % Plt Count 228 260 (140-400) K/mcL Neutrophils # 8.0 5.2 (1.6-8.9) K/mcL BMP 10/17/16 08:13 Sodium 137 Potassium 3.9 Chloride 101 Carbon Dioxide 24 BUN 11 Creatinine 0.74 Glucose 135 H Calcium 8.6 Liver Function 10/17/16 Range/Units 08:13 Total Bilirubin 0.6 (0.2-1.2) mg/dL AST 18 (5-34) Units/L ALT 17 (0-55) Units/L Alkaline Phosphatase 87 (38-126) Units/L Albumin 2.8 L (3.5-5.0) g/dL - ABG Interpretation ABG results: PT/INR, D-dimer PT 11.7 Seconds (9.4-12.1) 10/13/16 17:10 - Impressions Impressions Abdomen/Pelvis CT 10/17/16 15:30 IMPRESSION: Negative noncontrast study. D/ / Na See Cha, MD / Na See Cha, MD Interpreting Provider: Na See Cha, MD - Attending Attestation I examined this patient and my medical decision-making was reviewed with the CYBER SECURITY ARCHITECT/PA/Advanced Practice Nurse/Resident Physician. I agree with the documented findings, disposition and treatment plan as described except to the extent set forth below. Need Rheumatology and Infectious disease input
[2016-10-18 07:26] LABS: Alanine Aminotransferase 22 Units/L (0-55); Albumin 2.6 g/dL (3.5-5.0); Albumin/Globulin Ratio 0.6 (1.1-2.2); Alkaline Phosphatase 82 Units/L (38-126); Aspartate Amino Transferase 22 Units/L (5-34); BUN/Creatinine Ratio 21 (6-26); Bilirubin,Total 0.5 mg/dL (0.2-1.2); Blood Urea Nitrogen 16 mg/dL (7-20); Calcium 8.6 mg/dL (8.6-10.8); Carbon Dioxide 25 mEq/L (19-29); Chloride 103 mEq/L (98-109); Globulin 4.1 g/dL (2.4-3.5); Glucose 103 mg/dL (70-99); Osmolality,Calculated 287 (280-300); Potassium 3.4 mEq/L (3.5-4.5); Sodium 138 mEq/L (136-145); Total Protein 6.7 g/dL (6.0-8.3); eGFR For African Americans > 60 (> 60); eGFR For Non-African Americans > 60 (> 60)
[2016-10-18 07:31] LABS: Basophils % 0.5 %; Eosinophils # 0.1 K/mcL (0.0-0.6); Eosinophils % 0.9 %; Hematocrit 32.1 % (35.3-44.9); Hemoglobin 10.3 g/dL (11.5-15.4); Immature Granulocytes % 0.5 % (0-4); Lymphocytes # 2.4 K/mcL (0.6-4.6); Lymphocytes % 28.5 %; Mean Corpuscular HGB Conc 32.1 g/dL (31.6-35.5); Mean Corpuscular Hemoglobin 26.7 pg (28.0-33.3); Mean Corpuscular Volume 83.2 fL (83.0-100.0); Mean Platelet Volume 10.4 fL (9.4-12.4); Monocytes # 0.7 K/mcL (0.0-1.3); Monocytes % 8.1 %; Neutrophils # 5.3 K/mcL (1.6-8.9); Platelet Count 307 K/mcL (140-400); Red Blood Count 3.86 M/mcL (3.82-4.97); Red Cell Distribution Width 13.8 % (11.5-14.5); Segmented Neutrophils % 61.5 %
[2016-10-18] MEDS: predniSONE 20 MG TABLET PO SCH (08:05)
[2016-10-18] MEDS: Aspirin Enteric Coated 81 MG Tablet PO SCH (08:05)
[2016-10-18 08:23] LABS: Parvovirus B19, IgG 4.73 IV (<=0.89); Parvovirus B19, IgM 0.32 IV (<=0.89)
[2016-10-18 11:03] VITALS: BP 120/74
--- NOTE | 2016-10-18 11:55 | Discharge Summary ---
<Gildardo Polanco - Last Filed: 10/18/16 14:41> Date of Encounter: 10/18/16 Time of Encounter: 11:52 - Discharge Diagnosis (1) Chest pain Priority: Primary Status: Acute Qualifiers: Chest pain type: unspecified Qualified Code(s): R07.9 - Chest pain, unspecified (2) Exertional dyspnea Priority: Secondary Status: Acute (3) Anemia Priority: Secondary Status: Acute Qualifiers: Anemia type: iron deficiency Qualified Code(s): D50.0 - Iron deficiency anemia secondary to blood loss (chronic) (4) Fever Priority: Primary Status: Acute Qualifiers: Fever type: unspecified Qualified Code(s): R50.9 - Fever, unspecified (5) DVT prophylaxis Priority: Primary Status: Acute - Discharge Medications Prescriptions: Docusate [Colace] 100 mg PO BID #60 capsule Ferrous Sulfate 325 mg PO BIDWM #60 tablet Home Medications: Aspirin Enteric Coated [Aspirin EC] 81 mg PO QAM 10/13/16 [History] Cholecalciferol (Vitamin D3) [Vitamin D3] 5,000 unit PO QAM 10/13/16 [History] Vit C/E/Zn/Coppr/Lutein/Zeaxan [Preservision Areds 2 Softgel] 1 cap PO BID 10/13 [History] Docusate [Colace] 100 mg PO BID #60 capsule 10/18/16 [Rx] Ferrous Sulfate 325 mg PO BIDWM #60 tablet 10/18/16 [Rx] Allergies/Adverse Reactions: Allergies No Known Allergies Allergy (Verified 10/13/16 16:20) Procedures/tests Complete & Pending: Procedures Performed prior 72 hours Category Date Time Status CT abd pelvis wo no iv no oral [CT] Routine Cat Scan 10/17/16 15:[address] chest w/o contrast [CT chest wo con] [CT] Routine Cat Scan 10/15/16 11:25 Completed Date of admission: 10/13/16 18:04 Primary care physician: Lydia Levi Consults: 10/17/16 17:07 Consult to Training And Development Professional [CONS] Routine Reason for SW Consult: POA Discharging clinician: Gildardo Polanco Anticipated date of discharge: 10/18/16 - Patient Status Disposition: Home, Self-Care Condition: Fair Functional capacity at discharge: independent ambulation Overall status at discharge: patient is progressing back to baseline - Discharge Instructions Instructions: Iron Supplements (By mouth), Laxative, Stool Softeners (By mouth) , Angina (DC) Follow Up With: Steven Bravo DO [Primary Care Provider] - 10/20/16 9:45 am - Diet and Activity Activity: increase activity as tolerated Diet: low fat, low cholesterol, low salt diet Hospital course: Ms. Ramos is a 66 year old female who is admitted to the [facility] for chest pain. She would undergo cardiac testing with echocardiogram and stress test. Mother which were normal. She had no increase in her serum troponin levels. She did develop a fever during her admission peak fever was 103. There is extensive testing and workup most of which was normal. No she did have an elevated ESR and CRP. She did have anemia with iron deficiency. Her anemia was stable throughout her hospitalization here. Additionally she did have high titers of IgG parvovirus B19. IgM was low. Her fever has resolved over the past 40 hours. She did have some leukoesterase and a UA however she had no symptoms of urinary tract infection. She did receive 5 days of Rocephin. Today there is no significant lab or vital sign abnormalities. She is feeling much better. We will discharge her home with close follow-up with her primary care on Sunday. She has said that she will call her primary care physician and for fevers return. If they do May consider hematologic workup as she did have some reactive lymphocytes in her CBC however this did resolve. May also consider rheumatology consult to look for any connective tissue disorders however she did have a negative rheumatoid factor. DNA and anti-CCP are still pending. I also consider infectious disease consultation as well. We did consider having infectious disease and rheumatology see her during this admission however they are currently unavailable. She does have some lab tests that are pending currently she has Lyme babesiosis and ehrlichiosis tests that are pending. We will discharge her today with close follow-up with her PCP. The patient has voiced back her understanding and agreement to the above plan. - Time Spent with Patient Total time spent providing and/or coordinating discharge services: - Constitutional Vitals: Temp Pulse Resp BP Pulse Ox 98.2 F 74 15 120/74 95 10/18/16 10:59 10/18/16 10:59 10/18/16 10:59 10/18/16 10:59 10/18/16 10:59 Exam: General: This is a well-developed well-nourished 66-year-old female who is alert and orientated to person place time and situation. That appears to be comfortable and in no acute distress at this time. Head: Head is normocephalic and atraumatic. EENT: Anicteric sclera, pupils equal round react to light and accommodation, extraocular motions intact, normal external appearance of ears nose and eyes. Moist because membranes dentition intact. The tongue is midline. The trachea is midline. The neck is supple without mass or thyromegaly. No cervical or subclavicular lymphadenopathy palpable on exam. Heart: Heart has a regular rate and rhythm without murmurs rubs or gallops. Lungs: Clear to auscultation bilaterally. Normal effort of breathing. Normal rise and expanse of the chest wall bilaterally. Musculoskeletal: Grossly normal for age no gross form is noted. No tenosynovitis no abnormalities of the joints. Negative squeeze test for the feet. Extremities: There is no clubbing, cyanosis, or edema. Integument: There is no rash, no lesions. Psych: Patient is alert she cooperates with with the interviewing and physical exam. - VTE Documentation of Mechanical Device: Venous foot pump, device <Cameron Andres - Last Filed: 10/18/16 18:46> Procedures/tests Complete & Pending: Procedures Performed prior 72 hours Category Date Time Status CT abd pelvis wo no iv no oral [CT] Routine Cat Scan 10/17/16 15:30 Completed Date of admission: 10/13/16 18:04 Primary care physician: Lydia Levi Consults: 10/17/16 17:07 Consult to Training And Development Professional [CONS] Routine Reason for SW Consult: POA Hospital course: Ms. Ramos is a 66 year old female - Time Spent with Patient Total time spent providing and/or coordinating discharge services: - Constitutional Vitals: Temp Pulse Resp BP Pulse Ox 98.2 F 74 15 120/74 95 10/18/16 10:59 10/18/16 10:59 10/18/16 10:59 10/18/16 10:59 10/18/16 10:59 - Attending Attestation I examined this patient and my medical decision-making was reviewed with the TEST ENGINE MECHANIC/PA/Advanced Practice Nurse/Resident Physician. I agree with the documented findings, disposition and treatment plan as described except to the extent set forth below.
[2016-10-18 13:05] LABS: ANA IgG by ELISA NONE DETECTED (None Detected)
[2016-10-20 07:37] LABS: Borrelia Species DNA PCR NOT DETECTED; Cytomegalovirus DNA (PCR) NOT DETECTED
== END 2016-10-18 13:33 | disposition home or self-care (01) ==
LOC: EMEROO 16:12 → 3BNU 16:12 → SUATTDRO 18:04 → 3BNU 18:22
PROVIDERS: ADMIT Internal Medicine; ATTEND Internal Medicine